=== PATIENT | female | born 1960 ===

== ENCOUNTER 2017-09-27 10:35 | Outpatient (CLI) | payer OTHER ==
[~2017-09-27] VITALS: Ht 170.2 cm; Wt 75.3 kg
[2017-09-27] MEDS ORDERED: CIPRO500 MG PO (12:33)
[2017-09-27] MEDS ORDERED: FLONASE16 GM NASAL (12:34)
[2017-09-27] MEDS ORDERED: SWIM EAR DRO29.57 ML OTIC (12:36)
== END 2017-09-27 14:50 | disposition home or self-care (01) ==
LOC: OFIC 805 10:35
DX: H93.11 Tinnitus, right ear (principal); B36.9 Superficial mycosis, unspecified; H62.41 Otitis externa in other diseases classified elsewhere, right ear

== ENCOUNTER 2017-10-04 08:14 | Outpatient (CLI) | payer OTHER ==
[~2017-10-04] VITALS: Ht 152.4 cm; Wt 75.3 kg
[~2017-10-04 08:14] MED LIST: CIPRO500 MG PO; FLONASE16 GM NASAL; SWIM EAR DRO29.57 ML OTIC
== END 2017-10-04 08:30 | disposition home or self-care (01) ==
LOC: OFIC 805 08:14
DX: H93.13 Tinnitus, bilateral (principal); B36.9 Superficial mycosis, unspecified; H62.43 Otitis externa in other diseases classified elsewhere, bilateral

== ENCOUNTER → 2020-12-11 | Outpatient (CLI) | payer OTHER | END | disposition home or self-care (01) | LOC: OFIC 805 13:45 | PROVIDERS: ATTEND Otolaryngology Otology & Neurotology | DX: J31.0 Chronic rhinitis (principal); R43.9 Unspecified disturbances of smell and taste ==

== ENCOUNTER 2021-07-13 08:00 | Outpatient (CLI) | payer OTHER | END 2021-07-13 08:30 | disposition home or self-care (01) | LOC: PPH VACUNA 08:00 | PROVIDERS: ATTEND Emergency Medicine Pediatric Emergency Medicine | DX: Z23 Encounter for immunization (principal) ==

== ENCOUNTER 2024-05-20 05:55 | Inpatient (IN) | payer OTHER ==
[2024-05-15 15:33] LABS: RH NEGATIVE
[2024-05-16 11:03] LABS: COL ADP 101 SECONDS (56-102); COL EPI 157 SECONDS (82-175)
[~2024-05-20] VITALS: Ht 167.6 cm; Wt 69.9 kg
[~2024-05-20 05:55] MED LIST changes: +LEVOTHYROXINE25 MCG PO
[2024-05-20] MEDS ORDERED: CEFAZOLIN SODIUM 1,000 MG VIAL IV ONE (08:45)
[2024-05-20] MEDS ORDERED: EPINEPHRINE HCL/PF 1 MG/ML AMPUL IR ONE (08:45)
[2024-05-20] MEDS ORDERED: POVIDONE-IODINE 118 ML BOTT TOP ONE (08:45)
[2024-05-20] MEDS ORDERED: ONDANSETRON HCL 2 MG/ML VIAL IV PRN (09:30)
[2024-05-20] MEDS ORDERED: MORPHINE SULFATE 4 MG/ML VIAL IV PRN (09:30)
[2024-05-20] MEDS ORDERED: MORPHINE SULFATE 4 MG/ML VIAL IV ONE ×2 (09:45→10:15)
[2024-05-20] MEDS ORDERED: KETOROLAC TROMETHAMINE 30 MG VIAL IV ONE (11:15)
[2024-05-20] MEDS ORDERED: ONDANSETRON HCL 2 MG/ML VIAL IV ONE (11:40)
[2024-05-20] MEDS ORDERED: MEPERIDINE HCL/PF 50 MG/ML VIAL IV PRN (11:45)
[2024-05-20] MEDS ORDERED: RINGERS SOLUTION,LACTATED 1,000 ML IV SCH (12:00)
[2024-05-20] MEDS ORDERED: CEFAZOLIN SODIUM 1,000 MG VIAL IV SCH ×3 (12:00→18:00)
[2024-05-20 12:23] LABS: HEMATOCRIT 31.8 % (36.0-45.00); HEMOGLOBIN 10.2 g/dL (12.0-15.00); MEAN CELL VOLUME 72.8 fL (80.00-100.00); MEAN CORPUSCULAR HEMOGLOBIN 23.3 pg (27.00-32.0); RED BLOOD COUNT 4.37 M/uL (4.00-6.00); RED CELL DISTRIBUTION WIDTH 13.9 % (11.5-14.5)
[2024-05-20 12:24] LABS: PLATELET COUNT 102 K/uL (150-450)
[2024-05-20 12:51] VITALS: BP 125/76
[2024-05-20] MEDS ORDERED: PROMETHAZINE HCL 25 MG/ML AMPUL IV SCH (13:00)
[2024-05-20 14:45] VITALS: BP 119/60
[2024-05-21] VITALS: BP 103/64
[2024-05-21] MEDS ORDERED: SYNTHROID 25 MCG (MARCA ORIGINAL) PO SCH (06:00)
[2024-05-21 06:55] LABS: HEMATOCRIT 31.7 % (36.0-45.00); HEMOGLOBIN 10.3 g/dL (12.0-15.00); MEAN CELL VOLUME 71.4 fL (80.00-100.00); MEAN CORPUSCULAR HEMOGLOBIN 23.2 pg (27.00-32.0); MEAN CORPUSCULAR HGB CONC 32.5 g/dl (32.0-36.0); RED BLOOD COUNT 4.43 M/uL (4.00-6.00); RED CELL DISTRIBUTION WIDTH 14.6 % (11.5-14.5)
[2024-05-21 07:03] LABS: PLATELET COUNT 118 K/uL (150-450)
[2024-05-21] MEDS ORDERED: URETRON D-S TAB1 TAB PO (07:35)
[2024-05-21] MEDS ORDERED: CIPRO500 MG PO (07:35)
[2024-05-21] MEDS ORDERED: MAXFE CAPLET1 EAC1 PO (07:35)
[2024-05-21] MEDS ORDERED: SURFAK240 M1 PO (07:35)
[2024-05-21] MEDS ORDERED: IBU800 MG PO (07:35)
[2024-05-21] MEDS ORDERED: NEURONTIN300 MG PO (07:35)
[2024-05-21 08:31] LABS: MANUAL PLATELET COUNT 208
[2024-05-21 08:32] VITALS: BP 114/45
[2024-05-21] MEDS ORDERED: ENOXAPARIN SODIUM 40 MG/0.4 ML SYRINGE SUBCUTANEO SCH (09:00)
[2024-05-21 11:00] VITALS: BP 119/73
== END 2024-05-21 13:10 | disposition home or self-care (01) | DRG 743 ==
LOC: CIR.AMB 05:55 → OB/GYN 09:57 → O/R 09:57 → OB/GYN 10:32 → CIR.AMB 13:13 → OB/GYN 05-21 13:10
PROVIDERS: Internal Medicine Geriatric Medicine; ADMIT Obstetrics & Gynecology Gynecology; ATTEND Obstetrics & Gynecology Gynecology
PROC: 0UT70ZZ Resection of Bilateral Fallopian Tubes, Open Approach (ICD-10-PCS; 2024-05-20)
PROC: 0JQC0ZZ Repair Pelvic Region Subcutaneous Tissue and Fascia, Open Approach (ICD-10-PCS; 2024-05-20)
PROC: 0USG0ZZ Reposition Vagina, Open Approach (ICD-10-PCS; 2024-05-20)
PROC: 0UT97ZZ Resection of Uterus, Via Natural or Artificial Opening (ICD-10-PCS; principal; 2024-05-20 18:30)
DX: D25.1 Intramural leiomyoma of uterus (principal); N81.3 Complete uterovaginal prolapse; Z20.822 Contact with and (suspected) exposure to COVID-19; N80.03 Adenomyosis of the uterus; N72 Inflammatory disease of cervix uteri